=== PATIENT | male | born 1975 | race Caucasian/White ===

== ENCOUNTER 2024-01-23 06:46 | Observation (INO) | payer BC, OTHER ==
[2024-01-23 06:54] LABS: Glucose,Whole Blood 133 mg/dL (70-110)
--- NOTE | 2024-01-23 07:10 | ED ---
Neuro HPI - General Stated Complaint: Stroke-Like Symptoms Time Seen by Provider: 01/23/24 06:50 Source: patient, EMS Mode of arrival: EMS Limitations: no limitations - History of Present Illness Is the patient presenting with stroke symptoms?: Yes Last Known Well Date: 01/23/24 Last Known Well Time: 06:00 Onset/Timin -: minutes(s) Location: left face, left arm, left leg History of same: No Place: outdoors Severity: moderate Quality: weak, numb Improves With: time Worsens With: none On Anticoagulants: No Context: sudden onset Associated Symptoms: denies other symptoms Treatments Prior to Arrival: oxygen, other (Xanax) - Related Data Home Medications: Previous Rx's Medication Instructions Recorded Aspirin 325 mg PO DAILY 30 Days #30 tab 01/25/24 Atorvastatin [Lipitor] 40 mg PO DAILY #30 tab 01/25/24 Clopidogrel [Plavix] 75 mg PO DAILY 21 Days #21 tab 01/25/24 Famotidine [Pepcid] 20 mg PO BID 15 Days #30 tab 01/25/24 Folic Acid 1 mg PO DAILY #30 tab 01/25/24 Metoprolol Tartrate [Lopressor] 25 mg PO BID #60 tab 01/25/24 Multivitamins, Thera [Multivitamin 1 each PO DAILY #30 tab 01/25/24 (formulary)] Nicotine 21Mg/24Hr Patch [Habitrol] 1 patch TRANSDERM DAILY #5 patch 01/25/24 Thiamine [Vitamin B-1] 100 mg PO DAILY #30 tab 01/25/24 hydrOXYzine HCL [Atarax] 25 mg PO TID PRN 10 Days #30 tab 01/25/24 lisinopriL [Zestril] 10 mg PO DAILY #30 tab 01/25/24 Allergies/Adverse Reactions: Allergies Allergy/AdvReac Type Severity Reaction Status Date / Time No Known Allergies Allergy Verified 01/23/24 08:27 Review of Systems ROS Statement: Those systems with pertinent positive or pertinent negative responses have been documented in the HPI. ROS Other: All systems not noted in ROS Statement are negative. Constitutional: Denies: fever, chills Eyes: Denies: eye pain, vision change Respiratory: Denies: cough, dyspnea Cardiovascular: Denies: chest pain, palpitations, edema Gastrointestinal: Denies: abdominal pain, nausea, vomiting Genitourinary: Denies: dysuria, hematuria Musculoskeletal: Denies: back pain Skin: Denies: rash Neurological: Denies: headache, weakness, numbness General Exam Limitations: no limitations General appearance: alert, in no apparent distress Head exam: Present: atraumatic, normocephalic Eye exam: Present: normal appearance. Absent: scleral icterus, conjunctival injection ENT exam: Present: normal oropharynx Neck exam: Present: normal inspection Respiratory exam: Present: normal lung sounds bilaterally. Absent: respiratory distress, wheezes, rales, rhonchi, stridor, accessory muscle use Cardiovascular Exam: Present: regular rate, normal rhythm, normal heart sounds. Absent: systolic murmur, diastolic murmur, rubs, gallop GI/Abdominal exam: Present: soft. Absent: distended, tenderness, guarding, rebound, rigid, mass Extremities exam: Present: normal inspection, normal capillary refill. Absent: pedal edema, calf tenderness Back exam: Present: normal inspection. Absent: CVA tenderness (R), CVA tenderness (L) Neurological exam: Present: alert, oriented X3, CN II-XII intact. Absent: motor sensory deficit Psychiatric exam: Present: anxious Skin exam: Present: warm, dry, intact, normal color. Absent: rash Stroke MDM - Lab Data Result diagrams: 01/23/24 06:53 01/23/24 06:53 Lab Results 01/23/24 01/23/24 01/23/24 Range/Units 06:50 06:53 06:53 WBC 7.6 (3.8-10.6) k/uL RBC 5.10 (4.30-5.90) m/uL Hgb 17.1 (13.0-17.5) gm/dL Hct 48.8 (39.0-53.0) % MCV 95.7 (80.0-100.0) fL MCH 33.5 (25.0-35.0) pg MCHC 35.0 (31.0-37.0) g/dL RDW 13.3 (11.5-15.5) % Plt Count 187 (150-450) k/uL MPV 10.0 Neutrophils % 61 % Lymphocytes % 20 % Monocytes % 7 % Eosinophils % 7 % Basophils % 1 % Neutrophils # 4.7 (1.3-7.7) k/uL Lymphocytes # 1.6 (1.0-4.8) k/uL Monocytes # 0.5 (0-1.0) k/uL Eosinophils # 0.6 (0-0.7) k/uL Basophils # 0.1 (0-0.2) k/uL PT 11.4 (10.0-12.5) sec INR 1.1 (<1.2) APTT 25.1 (22.0-30.0) sec Sodium (137-145) mmol/L Potassium (3.5-5.1) mmol/L Chloride (98-107) mmol/L Carbon Dioxide (22-30) mmol/L Anion Gap mmol/L BUN (9-20) mg/dL Creatinine (0.66-1.25) mg/dL Est GFR (CKD-EPI)AfAm (>60 ml/min/1.73 sqM) Est GFR (CKD-EPI)NonAf (>60 ml/min/1.73 sqM) Glucose (74-99) mg/dL POC Glucose (mg/dL) 133 H (70-110) mg/dL POC Glu Channel Marketing Manager ID Naldo, Makayla Calcium (8.4-10.2) mg/dL Total Bilirubin (0.2-1.3) mg/dL AST (17-59) U/L ALT (4-49) U/L Alkaline Phosphatase (38-126) U/L Creatine Kinase (55-170) U/L Troponin I (0.000-0.034) ng/mL Total Protein (6.3-8.2) g/dL Albumin (3.5-5.0) g/dL 01/23/24 01/23/24 Range/Units 06:53 06:53 WBC (3.8-10.6) k/uL RBC (4.30-5.90) m/uL Hgb (13.0-17.5) gm/dL Hct (39.0-53.0) % MCV (80.0-100.0) fL MCH (25.0-35.0) pg MCHC (31.0-37.0) g/dL RDW (11.5-15.5) % Plt Count (150-450) k/uL MPV Neutrophils % % Lymphocytes % % Monocytes % % Eosinophils % % Basophils % % Neutrophils # (1.3-7.7) k/uL Lymphocytes # (1.0-4.8) k/uL Monocytes # (0-1.0) k/uL Eosinophils # (0-0.7) k/uL Basophils # (0-0.2) k/uL PT (10.0-12.5) sec INR (<1.2) APTT (22.0-30.0) sec Sodium 137 (137-145) mmol/L Potassium 4.6 (3.5-5.1) mmol/L Chloride 108 H (98-107) mmol/L Carbon Dioxide 18 L (22-30) mmol/L Anion Gap 11 mmol/L BUN 16 (9-20) mg/dL Creatinine 0.80 (0.66-1.25) mg/dL Est GFR (CKD-EPI)AfAm >90 (>60 ml/min/1.73 sqM) Est GFR (CKD-EPI)NonAf >90 (>60 ml/min/1.73 sqM) Glucose 136 H (74-99) mg/dL POC Glucose (mg/dL) (70-110) mg/dL POC Glu Channel Marketing Manager ID Calcium 8.9 (8.4-10.2) mg/dL Total Bilirubin 0.4 (0.2-1.3) mg/dL AST 33 (17-59) U/L ALT 57 H (4-49) U/L Alkaline Phosphatase 75 (38-126) U/L Creatine Kinase 121 (55-170) U/L Troponin I <0.012 (0.000-0.034) ng/mL Total Protein 7.2 (6.3-8.2) g/dL Albumin 4.2 (3.5-5.0) g/dL - Medical Decision Making This patient is a 48-year-old man who had acute onset of right sided neurologic symptoms. The patient managed as a code thrombolytic patient. I saw the patient and he went directly to CT scan. Case was discussed with the neurointerventional list. The patient did have complete resolution of symptoms. He did however have recurrence of some symptoms and had repeat CT ordered. The symptoms did promptly resolve again. Case discussed with neurointerventional list and patient not candidate for lytics given that the symptoms had resolved. Patient will be admitted to have further neurology consultation and MRI. The patient had CT of the brain and CT angiogram of the brain that I interpreted as negative for acute hemorrhagic stroke, and no arterial occlusion respectively. The patient had chest x-ray that I interpreted as negative for acute infiltrate, pneumothorax, congestive heart failure Was pt. sent in by a medical professional or institution ([facility] [place], LEAD INFRASTRUCTURE ARCHITECT, urgent care, hospital, or fdc...) When possible be specific @ -[No] Did you speak to anyone other than the patient for history (EMS, parent, family, police, friend...)? What history was obtained from this source @ -[Patient's partner contributed history Did you review nursing and triage notes (agree or disagree)? Why? @ -[I reviewed and agree with nursing and triage notes] Were old charts reviewed (outside hosp., previous admission, EMS record, old EKG, old radiological studies, urgent care reports/EKG's, fdc records)? Report findings @ -[No old charts were reviewed] Differential Diagnosis (chest pain, altered mental status, abdominal pain women, abdominal pain men, vaginal bleeding, weakness, fever, dyspnea, syncope, headache, dizziness, GI bleed, back pain, seizure, CVA, palpatations, mental health, musculoskeletal)? @ -[Differential CVA Ischemic stroke, hemorrhagic stroke, brain tumor, atypical migraine, Wernicke's encephalopathy, seizure, multiple sclerosis, meningitis, encephalitis, hypoglycemia, Guillain-Fitzpatrick, electrolytes disturbance, myasthenia gravis.... This is not meant to be an all-inclusive list EKG interpreted by me (3pts min.). @ -[I interpreted as above] X-rays interpreted by me (1pt min.). @ -[I interpreted as above CT interpreted by me (1pt min.). @ -[I interpreted as above U/S interpreted by me (1pt. min.). @ -[None done] What testing was considered but not performed or refused? (CT, X-rays, U/S, labs)? Why? @ -[None] What meds were considered but not given or refused? Why? @ -[None] Did you discuss the management of the patient with other professionals (tim ramirez i.e. , [facility], LEAD INFRASTRUCTURE ARCHITECT, lab, RT, psych nurse, dialysis social worker, tile helper, teacher, community relations officer, case coordinator)? Give summary @ -[Case was discussed with the admitting physician, as well as with the neuro interventionalists team, see the details above Was smoking cessation discussed for >3mins.? @ -[Yes Was critical care preformed (if so, how long)? @ -[Yes Were there social determinants of health that impacted care today? How? (Homelessness, low income, unemployed, alcoholism, drug addiction, tr ansportation, low edu. Level, literacy, decrease access to med. care, intermediate, rehab)? @ -[No] Was there de-escalation of care discussed even if they declined (Discuss DNR or withdrawal of care, Hospice)? DNR status @ -[No] What co-morbidities impacted this encounter? (DM, HTN, Smoking, COPD, CAD, Ca ncer, CVA, ARF, Chemo, Hep., AIDS, mental health diagnosis, sleep apnea, morbid obesity)? @ -[Hypertension, smoking Was patient admitted / discharged? Hospital course, mention meds given and route, prescriptions, significant lab abnormalities, going to OR and other pertinent info. @ -[Admitted, see above Undiagnosed new problem with uncertain prognosis? @ -[No] Drug Therapy requiring intensive monitoring for toxicity (Heparin, Nitro, Insulin, Cardizem)? @ -[No] Were any procedures done? @ -[No] Diagnosis/symptom? @ -[Hypertension Acute TIA Acute, or Chronic, or Acute on Chronic? @ -[Acute Uncomplicated (without systemic symptoms) or Complicated (systemic symptoms)? @ -[Uncomplicated Side effects of treatment? @ -[No] Exacerbation, Progression, or Severe Exacerbation? @ -[No] Poses a threat to life or bodily function? How? (Chest pain, [place], [place], pneumonia, PE, COPD, DKA, ARF, appy, cholecystitis, CVA, Diverticulitis, Homicidal, Suicidal, threat to staff... and all critical care pts) @ -Yes Past Medical History Past Medical History: Hypertension History of Any Multi-Drug Resistant Organisms: None Reported Past Surgical History: No Surgical Hx Reported Past Psychological History: Anxiety Smoking Status: Never smoker Past Alcohol Use History: Daily Past Drug Use History: None Reported - Past Family History Father Family Medical History: Coronary Artery Disease (CAD) Course Vital Signs 01/23/24 01/23/2401/22/24 06:47 07:16 07:36 Temperature 98.7 F Pulse Rate 122 H 109 H 104 H Pulse Rate [ Precision Assembly Inspector ] Respiratory 18 18 18 Rate Blood Pressure 219/139 201/116 169/110 Blood Pressure [Left Arm] O2 Sat by Pulse 99 98 98 Oximetry 01/23/24 01/23/24 01/23/24 07:40 07:51 07:58 Temperature Pulse Rate 104 H 109 H 108 H Pulse Rate [ Precision Assembly Inspector ] Respiratory 18 18 20 Rate Blood Pressure 169/110 186/119 166/110 Blood Pressure [Left Arm] O2 Sat by Pulse 98 98 98 Oximetry 01/23/24 01/23/24 01/23/24 08:21 08:36 08:49 Temperature Pulse Rate 108 H 110 H 93 Pulse Rate [ Precision Assembly Inspector ] Respiratory 20 20 20 Rate Blood Pressure 172/114 190/128 Blood Pressure [Left Arm] O2 Sat by Pulse 98 99 99 Oximetry 01/23/24 01/23/24 01/23/24 09:00 10:20 10:36 Temperature Pulse Rate 104 H 84 89 Pulse Rate [ Precision Assembly Inspector ] Respiratory 20 18 20 Rate Blood Pressure 179/114 139/102 137/102 Blood Pressure [Left Arm] O2 Sat by Pulse 98 99 97 Oximetry 01/23/24 01/23/24 01/23/24 11:06 11:12 11:36 Temperature Pulse Rate 88 75 79 Pulse Rate [ Precision Assembly Inspector ] Respiratory 20 20 18 Rate Blood Pressure 155/100 154/100 150/95 Blood Pressure [Left Arm] O2 Sat by Pulse 99 98 99 Oximetry 01/23/24 01/23/24 01/23/24 12:06 12:44 13:43 Temperature Pulse Rate 89 80 Pulse Rate [ 86 Precision Assembly Inspector ] Respiratory 18 17 16 Rate Blood Pressure 162/95 173/107 Blood Pressure 157/97 [Left Arm] O2 Sat by Pulse 99 99 95 Oximetry 01/23/24 01/23/24 01/23/24 16:05 20:45 23:34 Temperature Pulse Rate 92 81 Pulse Rate [ 81 Precision Assembly Inspector ] Respiratory 16 18 18 Rate Blood Pressure 164/107 115/75 Blood Pressure 170/104 [Left Arm] O2 Sat by Pulse 96 98 95 Oximetry - Reevaluation(s) Reevaluation #1: 01/23/24 07:59 Case discussed with the interventional stroke team and they state that patient will be medical management at this point given that all symptoms have resolved. Disposition Clinical Impression: TIA (transient ischemic attack), Hypertension Disposition: ADMITTED IP TO THIS HOSP Condition: Good
--- NOTE | 2024-01-23 07:14 | CT ---
EXAM: CT Head Without Intravenous Contrast CLINICAL HISTORY: ITS.REASON CT Reason: Neuro deficit, acute, stroke suspected TECHNIQUE: Axial computed tomography images of the head/brain without intravenous contrast. CTDI is 49.2 mGy and DLP is 1187.6 mGy-cm. This CT exam was performed using one or more of the following dose reduction techniques: automated exposure control, adjustment of the mA and/or kV according to patient size, and/or use of iterative reconstruction technique. COMPARISON: No relevant prior studies available. FINDINGS: Brain: Mild cerebral volume loss. Omar-cisterna magna. No hemorrhage. No significant white matter disease. Ventricles: No acute findings. No ventriculomegaly. Bones/joints: Unremarkable. No acute fracture. Soft tissues: Unremarkable. Sinuses: Unremarkable as visualized. No acute sinusitis. Mastoid air cells: Unremarkable as visualized. No mastoid effusion. IMPRESSION: No acute findings in the head/brain.
--- NOTE | 2024-01-23 07:29 | CT ---
EXAM: CT Angiography Head With Intravenous Contrast CLINICAL HISTORY: ITS.REASON CT Reason: Neuro deficit, acute, stroke suspected TECHNIQUE: Axial computed tomographic angiography images of the head with intravenous contrast. CTDI is 18.2 mGy and DLP is 860.8 mGy-cm. This CT exam was performed using one or more of the following dose reduction techniques: automated exposure control, adjustment of the mA and/or kV according to patient size, and/or use of iterative reconstruction technique. 3D and MIP reconstructed images were created and reviewed. COMPARISON: No relevant prior studies available. FINDINGS: Limitations: Significantly limited study secondary contrast bolus timing. Right internal carotid artery: No acute findings. Intracranial segment is patent with no significant stenosis. No aneurysm. Right anterior cerebral artery: No occlusion or significant stenosis. No aneurysm. Right middle cerebral artery: No occlusion or significant stenosis. No aneurysm. Right posterior cerebral artery: No occlusion or significant stenosis. No aneurysm. Right vertebral artery: Unremarkable as visualized. Left internal carotid artery: No acute findings. Intracranial segment is patent with no significant stenosis. No aneurysm. Left anterior cerebral artery: No occlusion or significant stenosis. No aneurysm. Left middle cerebral artery: No occlusion or significant stenosis. No aneurysm. Left posterior cerebral artery: No occlusion or significant stenosis. No aneurysm. Left vertebral artery: Unremarkable as visualized. Basilar artery: No occlusion or significant stenosis. No aneurysm. IMPRESSION: Limited study. No large vessel occlusion demonstrated. EXAM: CT Angiography Neck With Intravenous Contrast CLINICAL HISTORY: ITS.REASON CT Reason: Neuro deficit, acute, stroke suspected TECHNIQUE: Routine carotid CT angiography protocol was performed with intravenous contrast. NASCET criteria using the distal ICAs for comparison were used for evaluation of stenoses. CTDI is 18.2 mGy and DLP is 860.8 mGy-cm. This CT exam was performed using one or more of the following dose reduction techniques: automated exposure control, adjustment of the mA and/or kV according to patient size, and/or use of iterative reconstruction technique. MIP reconstructed images were created and reviewed. COMPARISON: None. FINDINGS: Limitations: Contrast bolus timing limits this exam. VASCULATURE: Right common carotid artery: No significant stenosis. No dissection or occlusion. Right internal carotid artery: Calcified and noncalcified plaque carotid bifurcations and proximal internal carotid arteries. Right external carotid artery: No occlusion. Right vertebral artery: Dominant right vertebral artery. Left common carotid artery: No significant stenosis. No dissection or occlusion. Left internal carotid artery: See above. Left external carotid artery: No occlusion. Left vertebral artery: No significant stenosis. No dissection or occlusion. NECK: Bones/joints: No acute findings. Soft tissues: Unremarkable. Lung apices: No acute disease. CAROTID STENOSIS REFERENCE USING NASCET CRITERIA: % ICA stenosis = (1 - narrowest ICA diameter/diameter of distal cervical ICA) x 100. Mild - <50% stenosis. Moderate - 50-69% stenosis. Severe - 70-94% stenosis. Near occlusion - 95-99% stenosis. Occluded - 100% stenosis. IMPRESSION: Limited exam. No high-grade stenosis.
[2024-01-23 07:31] LABS: ALT 57 U/L (4-49); AST 33 U/L (17-59); African American GFR (CKD) >90 (>60 ml/min/1.73 sqM); Albumin 4.2 g/dL (3.5-5.0); Alkaline Phosphatase 75 U/L (38-126); Anion Gap 11 mmol/L; Blood Urea Nitrogen 16 mg/dL (9-20); Calcium 8.9 mg/dL (8.4-10.2); Carbon Dioxide 18 mmol/L (22-30); Chloride 108 mmol/L (98-107); Creatine Kinase 121 U/L (55-170); Glucose 136 mg/dL (74-99); Non-African American GFR(CKD) >90 (>60 ml/min/1.73 sqM); Potassium 4.6 mmol/L (3.5-5.1); Sodium 137 mmol/L (137-145); Total Bilirubin 0.4 mg/dL (0.2-1.3); Total Protein 7.2 g/dL (6.3-8.2)
--- NOTE | 2024-01-23 07:37 | XR ---
EXAMINATION TYPE: XR chest 1V portable DATE OF EXAM: 01/23/2024 COMPARISON: 02/06/2016 HISTORY: Chest pain TECHNIQUE: Single frontal view of the chest is obtained. FINDINGS: There is no focal air space opacity, pleural effusion, or pneumothorax seen. The cardiac silhouette size is within normal limits. The osseous structures are intact. IMPRESSION: 1. No acute process.
[2024-01-23] MEDS ORDERED: ACETAMINOPHEN TAB 325 MG TAB PO PRN (07:56)
[2024-01-23 07:57] LABS: Basophils # (A) 0.1 k/uL (0-0.2); Basophils % (A) 1 %; Eosinophils # (A) 0.6 k/uL (0-0.7); Eosinophils % (A) 7 %; HCT 48.8 % (39.0-53.0); HGB 17.1 gm/dL (13.0-17.5); Lymphocytes # (A) 1.6 k/uL (1.0-4.8); Lymphocytes % (A) 20 %; MCH 33.5 pg (25.0-35.0); MCV 95.7 fL (80.0-100.0); Monocytes # (A) 0.5 k/uL (0-1.0); Monocytes % (A) 7 %; Neutrophils # (A) 4.7 k/uL (1.3-7.7); Neutrophils % (A) 61 %; Platelet Count 187 k/uL (150-450); RDW 13.3 % (11.5-15.5); WBC 7.6 k/uL (3.8-10.6)
[2024-01-23 08:00] LABS: INR 1.1 (<1.2); Partial Thromboplastin Time 25.1 sec (22.0-30.0); Prothrombin Time 11.4 sec (10.0-12.5)
[2024-01-23] MEDS: ASPIRIN 325 MG TAB PO STA (08:23)
[2024-01-23] MEDS: LABETALOL 5 MG/ML VIAL MDV IVP STA ×3 (08:28→09:04)
[2024-01-23] MEDS: ATORVASTATIN 40 MG TAB PO SCH (08:30)
[2024-01-23] MEDS: FAMOTIDINE 20 MG TAB PO SCH (08:30)
--- NOTE | 2024-01-23 09:18 | CT ---
EXAMINATION TYPE: CT brain wo con for TPA DATE OF EXAM: 01/23/2024 COMPARISON: 01/23/2024 from 7:01 AM HISTORY: Lt sided numbness, hypertension CT DLP: 1160.[address] of the brain was performed. The ventricles, basal cisterns and sulci overlying the cerebral convexities demonstrate a normal appe arance. There is no evidence for intracranial hemorrhage or sulcal effacement. No mass effects are seen. Osseous calvarium is intact. If symptoms persist consider MRI as clinically warranted. IMPRESSION: 1. No acute intracranial process is seen at this time.
[2024-01-23] MEDS: SODIUM CHLORIDE 0.9% 1,000 ML IV SCH (11:19)
[2024-01-23] MEDS ORDERED: chlordiazePOXIDE 25 MG CAP PO PRN ×3 (11:19)
[2024-01-23] MEDS: METOPROLOL TARTRATE 25 MG TAB PO SCH (11:19)
--- NOTE | 2024-01-23 11:21 | P.HPIM ---
History of Present Illness This is a pleasant 48 years old male with no significant past medical history. Patient presents because of left arm and left face numbness started this morning when he was driving. Patient states that his numbness lasted about 4 to 5 minutes. He called a ambulance and on the way he was noted to have weakness on slurred speech, his weakness is on the left side as well which lasted also for a few minutes. While he was in the emergency room also he had 3-4 episodes of numbness and thus why he had a repeat CAT scan of the brain this morning. Currently denies any numbness or weakness. Speech is normal. No blurred distance vision. No headache dizziness. He denies chest pain dyspnea or coughing. No change in urine or bowel habits. No fever or chills. He smokes about 2 to 3 packs/day and he drinks about 6 packs of beer and 1 pint of liquor, he was counseled to quit the substances and he is agreeable. No illicit drugs. On presentation his blood pressure was elevated. Patient declines taking blood pressure medication at home On presentation his blood pressure was elevated 219/139, history received IV labetalol several injections and his blood pressure currently improved to 179/114 His heart rate was 122 and then 104 He is afebrile and he is saturating well on room air He has unremarkable CBC, INR, BMP, liver enzymes. Troponin is negative less than 0.012. Creatinine kinase is [address] of the brain is negative for acute process x 2 Chest x-ray is negative for acute process CTA of the head and neck showing no aneurysm or dissection or significant stenosis EKG showing sinus tachycardia at [address]-T changes and QTc 392 Review of Systems Review of systems CONSTITUTIONAL: No fever, no malaise, no fatigue. HEENT: No recent visual problems or hearing problems. Denied any sore throat. CARDIOVASCULAR: No orthopnea, PND, no palpitations, no syncope. PULMONARY: No shortness of breath, no cough, no hemoptysis. GASTROINTESTINAL: No diarrhea, no nausea, no vomiting, no abdominal pain. Normoactive bowel sounds. -NEUROLOGICAL: No headaches, no weakness, no numbness currently. See above HEMATOLOGICAL: Denies any bleeding or petechiae. GENITOURINARY: Denies any burning micturition, frequency, or urgency. MUSCULOSKELETAL/RHEUMATOLOGICAL: Denies any joint pain, swelling, or any muscle pain. ENDOCRINE: Denies any polyuria or polydipsia. Past Medical History Past Medical History: Hypertension History of Any Multi-Drug Resistant Organisms: None Reported Past Surgical History: No Surgical Hx Reported Past Psychological History: Anxiety Smoking Status: Never smoker Past Alcohol Use History: Daily Past Drug Use History: None Reported - Past Family History Father Family Medical History: Coronary Artery Disease (CAD) Medications and Allergies Home Medications Medication Instructions Recorded Confirmed Type No Known Home Medications 02/06/16 01/23/24 History Allergies Allergy/AdvReac Type Severity Reaction Status Date / Time No Known Allergies Allergy Verified 01/23/24 08:27 Physical Exam Vitals: Vital Signs Temp Pulse Resp BP Pulse Ox 01/23/24 10:20 84 18 139/102 99 01/23/24 09:00 104 H 20 179/114 98 01/23/24 08:49 93 20 190/128 99 01/23/24 08:36 110 H 20 99 01/23/24 08:21 108 H 20 172/114 98 01/23/24 07:58 108 H 20 166/110 98 01/23/24 07:51 109 H 18 186/119 98 01/23/24 07:40 104 H 18 169/110 98 01/23/24 07:36 104 H 18 169/110 98 01/23/24 07:16 109 H 18 201/116 98 01/23/24 06:47 98.7 F 122 H 18 219/139 99 Intake and Output 01/22/24 01/23/24 01/23/24 22:59 06:59 14:59 Other: Weight 106.594 kg -GENERAL: The patient is alert and oriented x3, not in any acute distress. obese HEENT: Pupils are round and equally reacting to light. EOMI. No scleral icterus. No conjunctival pallor. Normocephalic, atraumatic. No pharyngeal erythema. No thyromegaly. CARDIOVASCULAR: S1 and S2 present. No murmurs, rubs, or gallops. PULMONARY: Chest is clear to auscultation, no wheezing , no crackles. ABDOMEN: Soft, nontender, nondistended, normoactive bowel sounds. No palpable organomegaly. MUSCULOSKELETAL: No joint swelling or deformity. EXTREMITIES: No cyanosis, clubbing, or pedal edema. NEUROLOGICAL: Gross neurological examination did not reveal any focal deficits. SKIN: No rashes. no petechiae. Results CBC & Chem 7: 01/23/24 06:53 01/23/24 06:53 Labs: Abnormal Lab Results - Last 24 Hours (Table) 01/23/24 01/23/24 Range/Units 06:50 06:53 Chloride 108 H (98-107) mmol/L Carbon Dioxide 18 L (22-30) mmol/L Glucose 136 H (74-99) mg/dL POC Glucose (mg/dL) 133 H (70-110) mg/dL ALT 57 H (4-49) U/L Assessment and Plan Assessment: Possible TIA with transient weakness and numbness on the left face, arm and leg with transient slurred speech Hypertension urgency Nicotine dependence Alcohol use disorder at risk of alcohol withdrawal Obesity with BMI of 31.9 Plan: Patient was started on aspirin 325 mg in the emergency room we will continue Check echocardiogram Neurology consult Start metoprolol 25 mg twice daily Check TSH and hemoglobin A1c and B12 and folate Patient was counseled to quit substances, nicotine and alcohol and he verbalized understanding and acceptance DVT prophylaxis: Subcutaneous heparin GI prophylaxis: Pepcid Prognosis is guarded
--- NOTE | 2024-01-23 15:21 | P.CNNES ---
History of Present Illness Consult date: 01/23/24 Requesting physician: Zana Bailey Reason for Consult: tia History of Present Illness: this is a 48-year-old gentleman who presented to [facility] department because of left facial numbness as well as left upper and lower extremity numbness. He is accompanied with his mother was at bedside. Patient states that today between 5:30 to 6:00 in the morning he noticed that his left side of the face was numb as well as left upper and lower extremity was numb. He stated that episode lasted less than hour and possibly lasted up to 10 minutes may be slightly longer but pressure less than an hour. He denies any weakness, denies any difficulty getting his words out or swallowing or visual disturbance. He denies any history of stroke. Denies history of TIAs. He states he has history of hypertension but does not take medication for at least one year and his mother stated that it's because he does not like to take medication. He smokes 2 packs a day. He drinks about 6 cans of beer and a half a pint. Denies any illicit drug use. Denies being on any medication. He does have severe anxiety. He feels those symptoms were due to anxiety but he denies any stressors that are new. He states that he is driving about 2 hours to work every day but again he denies any new stressors or anything aggravating him. Some of the workup during this hospital visit consisted of: sodium is 137, glucose is 136, TSH is 0.[address] of the head is reported as no acute intracranial process seen at this time.I personally reviewed the CT and agree with report. CT angiography of the head and neck was reported as Limited but no high-grade stenosis or large vessel occlusion. a stroke code was activated and is seems the ED discuss it with the stroke/intervention team telephone engineer and they stated the patient says symptoms has resolved. They recommended medical management. The risk of IV thrombolytic outweigh the benefit Review of Systems Review of system: The 12 point system was reviewed and apparent positive and negative per HPI. Past Medical History Past Medical History: Hypertension History of Any Multi-Drug Resistant Organisms: None Reported Past Surgical History: No Surgical Hx Reported Additional Past Surgical History / Comment(s): ortho surgery- arm fracture Past Anesthesia/Blood Transfusion Reactions: No Reported Reaction Past Psychological History: Anxiety Smoking Status: Never smoker Past Alcohol Use History: Daily Past Drug Use History: None Reported - Past Family History Father Family Medical History: Coronary Artery Disease (CAD) Medications and Allergies Home Medications Medication Instructions Recorded Confirmed Type No Known Home Medications 02/06/16 01/23/24 History Allergies Allergy/AdvReac Type Severity Reaction Status Date / Time No Known Allergies Allergy Verified 01/23/24 08:27 Physical Examination - Vital Signs Vital Signs: Vital Signs Temp Pulse Pulse Resp BP BP Pulse Ox 01/23/24 13:43 86 16 157/97 95 01/23/24 12:44 80 17 173/107 99 01/23/24 12:06 89 18 162/95 99 01/23/24 11:36 79 18 150/95 99 01/23/24 11:12 75 20 154/100 98 01/23/24 11:06 88 20 155/100 99 01/23/24 10:36 89 20 137/102 97 01/23/24 10:20 84 18 139/102 99 01/23/24 09:00 104 H 20 179/114 98 01/23/24 08:49 93 20 190/128 99 01/23/24 08:36 110 H 20 99 01/23/24 08:21 108 H 20 172/114 98 01/23/24 07:58 108 H 20 166/110 98 01/23/24 07:51 109 H 18 186/119 98 01/23/24 07:40 104 H 18 169/110 98 01/23/24 07:36 104 H 18 169/110 98 01/23/24 07:16 109 H 18 201/116 98 01/23/24 06:47 98.7 F 122 H 18 219/139 99 Intake and Output 01/23/24 01/23/24 01/23/24 06:59 14:59 22:59 Other: # Voids 1 Weight 106.594 kg 106.594 kg GENERAL: The patient is lying in bed and is not in acute distress. NEUROLOGICAL: Higher mental function: The patient is awake, alert, oriented to self, place and time. Patient is following commands. No aphasia and no neglect. Cranial nerves: The pupils are round, equal and reactive to light and accommodation. Visual caraballo are full to confrontation throughout. Extraocular movement is intact no nystagmus is noted. Facial sensation is normal to touch throughout. The facial strength is normal throughout. Hearing is normal george aterally to hand rub. Tongue is midline and moved [id number] without any difficulty. No dysarthria is noted. Shoulder shrug is normal bilaterally. Motor: The strength is 5 over 5 throughout. Normal tone and bulk. Cerebellum: Normal finger to nose heel to vernon bilaterally. Sensation: Sensation is normal to touch throughout. Reflexes (right/left): 2+ throughout. Plantars are downgoing bilaterally. Results - Laboratory Findings CBC and BMP: 01/23/24 06:53 01/23/24 06:53 Abnormal Lab Findings: Abnormal Labs 01/23/24 01/23/24 06:50 06:53 Chloride 108 H Carbon Dioxide 18 L Glucose 136 H POC Glucose (mg/dL) 133 H ALT 57 H Assessment and Plan Assessment: this is a 48-year-old gentleman who presented emergency department because of numbness over the left face as well as the left upper and lower extremity that started between 5:30 to 6:00 in the morning and the episode lasted less than 1 hour and he feels lasted probably 10 minutes. Patient has underlying history of hypertension and he is not compliant taking medication for at least one year or more. He smokes 2 packs a day and drinks heavily daily. Transient ischemic attack due to his risk factors (HTN, obesity, tobacco and heavy alcohol consumption) hypertension and noncompliant taking medication for at least one year or more Tobacco use 2 packs a day Alcohol use Severe Anxiety Obese Plan: I ordered MRI the brain. Patient was started on aspirin 325 mg daily by the ED team. I also started the Plavix 75 mg daily. Patient was not any antiplatelets prior to this. Patient's are on the Lipitor 40 mg daily. I ordered MRI the brain appeared 2-D echo was ordered and is pending as well as lipid panel. TSH, vitamin B12, folate and hemoglobin A1c is ordered and is pending Continue neuro checks Continue cardiac monitoring PT, OT and JUDICIAL CLERK are consulted patient was counseled on tobacco cessation Patient was also counseled on compliance taken blood pressure medication and checking his blood pressure at home For his alcohol consumption that is heavy patient was counseled on the lowering the consumption. Patient started on thiamine 100 mg daily by the primary team. We'll defer the CIWA protocol to the primary team we'll defer the rest of the medical measure the primary team For DVT prophylaxis the patient is on subcu heparin Upon discharge the patient needs to follow-up with a neurologist as an outpatient within 2 weeks The plan was discussed with the patient and the his mother who was at bedside Thank you consultation Time with Patient: Greater than 30
[2024-01-23] MEDS: CLOPIDOGREL 75 MG TAB PO SCH (16:04)
[2024-01-23] MEDS: NICOTINE 21MG/24HR PATCH TRANSDERM SCH (18:37)
[2024-01-23] MEDS ORDERED: LORazepam 2 MG/ML INJ IV PRN ×2 (18:57)
[2024-01-23] MEDS: HEPARIN SODIUM,PORCINE 5,000 UNIT/ML 1 ML VIAL SQ SCH (21:00)
[2024-01-24] MEDS: LABETALOL 5 MG/ML VIAL MDV IVP PRN (00:16)
[2024-01-24] MEDS: THIAMINE 100 MG TAB PO SCH (08:55)
[2024-01-24] MEDS: MULTIVITAMINS, THERA 1 EACH TAB PO SCH (08:55)
[2024-01-24] MEDS: ASPIRIN 325 MG TAB PO SCH (08:55)
[2024-01-24] MEDS: FOLIC ACID 1 MG TAB PO SCH (08:55)
--- NOTE | 2024-01-24 10:19 | CA ---
Transthoracic Echo Report Name: William Mosquera Age: 48 Gender: M : 1975 Exam Date: 01/23/2024 11:43 Exam Location: [facility] Ht (in): 72 Wt (lb): 235 Ordering Physician: Nhan Peralta MD Attending/Referring Phys: [id number], [employer] Farhana Flowers, MATTHEW Procedure CPT: Indications: Rule out heart disease Cardiac Hx: HTN Technical Quality: Good Contrast 1: Total Dose (mL): Contrast 2: Total Dose (mL): MEASUREMENTS (Male / Female) Normal Values 2D ECHO LV Diastolic Diameter PLAX 4.6 cm 4.2 - 5.9 / 3.9 - 5.3 cm LV Systolic Diameter PLAX 3.0 cm IVS Diastolic Thickness 1.5 cm 0.6 - 1.0 / 0.6 - 0.9 cm LVPW Diastolic Thickness 1.3 cm 0.6 - 1.0 / 0.6 - 0.9 cm LV Relative Wall Thickness 0.6 RV Internal Dim ED PLAX 3.4 cm LA Systolic Diameter LX 3.8 cm 3.0 - 4.0 / 2.7 - 3.8 cm LV Diastolic Volume MOD 4C 146.6 cm??? LV Systolic Volume MOD 4C 79.9 cm??? LV Ejection Fraction MOD 4C 45.5 % LV Cardiac Index MOD 4C 2494.6 cm???/min???m??? LV Diastolic Length 4C 9.3 cm LV Systolic Length 4C 7.8 cm LV Diastolic Volume MOD 2C 121.2 cm??? LV Systolic Volume MOD 2C 49.6 cm??? LV Ejection Fraction MOD 2C 59.0 % LV Cardiac Index MOD 2C 2673.8 cm???/min???m??? LV Diastolic Length 2C 8.8 cm LV Systolic Length 2C 7.2 cm LA Volume 54.6 cm??? 18 - 58 / 22 - 52 cm??? LA Volume Index 23.2 cm???/m??? 16 - 28 cm???/m??? M-MODE Aortic Root Diameter MM 3.5 cm MV E Point Septal Separation 0.3 cm AV Cusp Separation MM 2.7 cm DOPPLER AV Peak Velocity 107.7 cm/s AV Peak Gradient 4.6 mmHg MV Area PHT 3.8 cm??? Mitral E Point Velocity 87.7 cm/s Mitral A Point Velocity 68.3 cm/s Mitral E to A Ratio 1.3 MV Deceleration Time 202.0 ms FINDINGS Left Ventricle Left ventricular ejection fraction is estimated at 55-60 %. Left ventricular cavity size normal. Moderate concentric left ventricular hypertrophy. No obvious regional wall motion abnormalities. Right Ventricle Mild right ventricular dilatation. Unable to estimate the right ventricular systolic pressure. Right Atrium Normal right atrial size. No right atrial thrombus or mass seen. Left Atrium Normal left atrial size. Mitral Valve Structurally normal mitral valve. No mitral stenosis, regurgitation or prolapse. Aortic Valve Trileaflet aortic valve. No aortic valve stenosis or regurgitation. Tricuspid Valve Structurally normal tricuspid valve. No tricuspid stenosis, regurgitation or prolapse. Pulmonic Valve Structurally normal pulmonic valve. No pulmonic regurgitation. Pericardium No pericardial effusion. Aorta Normal size aortic root and proximal ascending aorta. CONCLUSIONS Normal LV size and systolic function. Borderline right ventricle enlargement. No significant abnormality on the Doppler exam. No pericardial effusion Previewed by: Dr. Nova Garcia MD (Electronically Signed) Final Date: 24 January 2024 10:18
[2024-01-24] MEDS: chlordiazePOXIDE 25 MG CAP PO PRN (12:18)
--- NOTE | 2024-01-24 13:40 | P.PN ---
Subjective This is a pleasant 48 years old male with no significant past medical history. Patient presents because of left arm and left face numbness started this morning when he was driving. Patient states that his numbness lasted about 4 to 5 minutes. He called a ambulance and on the way he was noted to have weakness on slurred speech, his weakness is on the left side as well which lasted also for a few minutes. While he was in the emergency room also he had 3-4 episodes of numbness and thus why he had a repeat CAT scan of the brain this morning. Currently denies any numbness or weakness. Speech is normal. No blurred distance vision. No headache dizziness. He denies chest pain dyspnea or coughing. No change in urine or bowel habits. No fever or chills. He smokes about 2 to 3 packs/day and he drinks about 6 packs of beer and 1 pint of liquor, he was counseled to quit the substances and he is agreeable. No illicit drugs. On presentation his blood pressure was elevated. Patient declines taking blood pressure medication at home On presentation his blood pressure was elevated 219/139, history received IV labetalol several injections and his blood pressure currently improved to 179/114 His heart rate was 122 and then 104 He is afebrile and he is saturating well on room air He has unremarkable CBC, INR, BMP, liver enzymes. Troponin is negative less than 0.012. Creatinine kinase is [address] of the brain is negative for acute process x 2 Chest x-ray is negative for acute process CTA of the head and neck showing no aneurysm or dissection or significant stenosis EKG showing sinus tachycardia at [address]-T changes and QTc 392 01/24/2024 No more weakness or numbness. No other neurological symptoms No chest pain no headache patient pt blood pressure is improved but still elevated 17*/92, he is on metoprolol 25 mg and we will add lisinopril , pt is counseled to check his blood test in one week and he agrees so we started him on lisinopril work of TSH, Hb A1c and folate were unremarkable mri of the brain is pending pt is on aspirin and plavix and lipitor Objective - Vital Signs Vital signs: Vital Signs Temp 97.6 F 01/24/24 11:12 Pulse 71 01/24/24 11:12 Resp 16 01/24/24 11:12 BP 179/92 01/24/24 11:12 Pulse Ox 98 01/24/24 11:12 FiO2 Intake & Output 01/23/24 01/24/24 01/24/24 18:59 06:59 18:59 Intake Total 640 240 Balance 640 240 Weight 106.594 kg Intake: Intake, IV Titration 100 Amount Sodium Chloride 0.9% 1, 100 000 ml @ 20 mls/hr IV . Q24H [facility] Rx#:[id number] Oral 540 240 Other: Voiding Method Toilet Toilet # Voids 1 - Exam GENERAL: The patient is alert and oriented x3, not in any acute distress. Well developed, well nourished. HEENT: Pupils are round and equally reacting to light. EOMI. No scleral icterus. No conjunctival pallor. Normocephalic, atraumatic. No pharyngeal erythema. No thyromegaly. CARDIOVASCULAR: S1 and S2 present. No murmurs, rubs, or gallops. PULMONARY: Chest is clear to auscultation, no wheezing , no crackles. ABDOMEN: Soft, nontender, nondistended, normoactive bowel sounds. No palpable organomegaly. MUSCULOSKELETAL: No joint swelling or deformity. EXTREMITIES: No cyanosis, clubbing, or pedal edema. NEUROLOGICAL: Gross neurological examination did not reveal any focal deficits. SKIN: No rashes. no petechiae. - Labs CBC & Chem 7: 01/23/24 06:53 01/23/24 06:53 Assessment and Plan Assessment: TIA with transient weakness and numbness on the left face, arm and leg with transient slurred speech Hypertension urgency, improved Nicotine dependence Alcohol use disorder at risk of alcohol withdrawal Obesity with BMI of 31.9 Plan: Continue with aspirin and Plavix per neurologist Continue with metoprolol and add lisinopril. Patient counseled to check his blood test in 1 week after discharge with his PCP and he is agreeable Neurology consult Follow-up MRI of the brain and B12 level Patient was counseled to quit substances, nicotine and alcohol and he verbalized understanding and acceptance DVT prophylaxis: Subcutaneous heparin GI prophylaxis: Pepcid Prognosis is guarded
[2024-01-24] MEDS: LORazepam 2 MG/ML INJ ONE (14:24)
[2024-01-24] MEDS: LORazepam 2 MG/ML INJ IV STA (14:24)
[2024-01-24] MEDS: lisinopriL 10 MG TAB PO SCH (15:02)
--- NOTE | 2024-01-24 15:05 | MR ---
EXAMINATION TYPE: MR brain wo con DATE OF EXAM: 01/24/2024 2:54 PM COMPARISON: NONE HISTORY: Stroke. Left arm numbness. Multiplanar and multispin-echo imaging of the brain was performed . The ventricles, basal cisterns and sulci overlying the cerebral convexities are within normal limits. There is no evidence for midline shift or mass effect. Acute intracranial hemorrhage or extra-axial collection is not evident. The brain parenchyma reveals no abnormal increased signal. No acute edema is identified. The paranasal sinuses and mastoid air cells are well-aerated. IMPRESSION: Unremarkable MRI of the brain.
--- NOTE | 2024-01-24 16:12 | P.PN ---
Subjective Progress Note Date: 01/24/24 I am following-up with patient and states is doing well and no new neurological issues. His blood pressure continues to run high per nurse. Objective - Vital Signs Vital signs: Vital Signs Temp 97.6 F 01/24/24 11:12 Pulse 71 01/24/24 11:12 Resp 16 01/24/24 14:00 BP 179/92 01/24/24 11:12 Pulse Ox 98 01/24/24 11:12 FiO2 Intake & Output 01/23/24 01/24/24 01/24/24 18:59 06:59 18:59 Intake Total 640 240 Balance 640 240 Weight 106.594 kg Intake: Intake, IV Titration 100 Amount Sodium Chloride 0.9% 1, 100 000 ml @ 20 mls/hr IV . Q24H [facility] Rx#:[id number] Oral 540 240 Other: Voiding Method Toilet Toilet # Voids 1 - Exam Some of the workup during this hospital visit consisted of: sodium is 137, glucose is 136, TSH is 0.[address] of the head is reported as no acute intracranial process seen at this time.I personally reviewed the CT and agree with report. CT angiography of the head and neck was reported as Limited but no high-grade stenosis or large vessel occlusion. MRI Brain is unremarkable. 2D echo: Is reported as normal left ventricular size and systolic function. Borderline right ventricular enlargement. No significant abnormality on the Doppler exam. - Labs CBC & Chem 7: 01/23/24 06:53 01/23/24 06:53 Assessment and Plan Assessment: this is a 48-year-old gentleman who presented emergency department because of numbness over the left face as well as the left upper and lower extremity that started between 5:30 to 6:00 in the morning and the episode lasted less than 1 hour and he feels lasted probably 10 minutes. Patient has underlying history of hypertension and he is not compliant taking medication for at least one year or more. He smokes 2 packs a day and drinks heavily daily. Transient ischemic attack due to his risk factors (HTN, obesity, tobacco and heavy alcohol consumption) hypertension and noncompliant taking medication for at least one year or more Tobacco use 2 packs a day Alcohol use Severe Anxiety Obese Plan: Patient was started on aspirin 325 mg daily and Plavix 75 mg daily during this admission. The patient to be on dual antiplateletes for 21 days and after 21 days stop Plavix but continue ASA indefinitely Patient was not any antiplatelets prior to this. Patient's are on the Lipitor 40 mg daily. Pending lipid panel. Continue neuro checks Continue cardiac monitoring PT, OT and ROLLER CHECKER are consulted patient was counseled on tobacco cessation Patient was also counseled on compliance taken blood pressure medication and checking his blood pressure at home For his alcohol consumption that is heavy patient was counseled on the lowering the consumption. Patient started on thiamine 100 mg daily by the primary team. We'll defer the CIWA protocol to the primary team we'll defer the rest of the medical measure the primary team For DVT prophylaxis the patient is on subcu heparin Upon discharge the patient needs to follow-up with a neurologist as an outpatient within 2 weeks The plan was discussed with the patient and the his mother who was at bedside. Time with Patient: Less than 30
[2024-01-24 16:30] LABS: Chol/HDL Ratio 6.12 Ratio; LDL Cholesterol,Calculated 119.9 mg/dL (0.0-131.0)
[2024-01-25 10:10] VITALS: BP 133/85; PULSE 74; RESP 18; TEMP 97.9
--- NOTE | 2024-01-26 05:52 | P.DS ---
Providers Date of admission: 01/23/24 07:59 Attending physician: Gaston Pedro Consults: 01/23/24 07:57 Consult Physician Urgent Consulting Provider: Yunier Saldaña Consult Reason/Comments: Left Sided weakness. TIA Do you want consulting provider notified?: Yes Primary care physician: Stated None Hospital Course: Diagnoses: TIA with transient weakness and numbness on the left face, arm and leg with transient slurred speech Hypertension urgency, improved Nicotine dependence Alcohol use disorder at risk of alcohol withdrawal Obesity with BMI of 31.9 Hospital course: This is a pleasant 48 years old male with no significant past medical history. Patient presents because of left arm and left face numbness started this morning when he was driving. Patient states that his numbness lasted about 4 to 5 minutes. He called a ambulance and on the way he was noted to have weakness on slurred speech, his weakness is on the left side as well which lasted also for a few minutes. Patient evaluated by neurologist and he had extensive workup including MRI of the brain which was negative for acute/subacute infarction or other significant abnormality. Patient was not on antiplatelet therapy at home. Then he was started on aspirin 325 mg together with Plavix 75 mg x 21 days, and then stop Plavix and continue with aspirin thereafter. Patient verbalized understanding these instructions upon discharge. Risk of bleeding explained extensively for the patient and he wishes to continue the treatment. On admission he had hypertensive urgency with a blood pressure reading 219/139, he was started on metoprolol and lisinopril and his blood pressure improved down to 133/85 upon discharge and he has been asymptomatic. All his symptoms resolved. He had no weakness numbness. No chest pain or dyspnea. No other new complaint and patient eager to go home today Patient was cleared for discharge by neurology service. Problems and management plan were discussed with the patient and he verbalized understanding and acceptance Patient was found stable and can be discharged home in guarded prognosis however he needs follow-up as an outpatient. Patient was instructed to follow up with PCP within one week and patient agrees patient was instructed to call his health insurance provider to find a nearby PCP, he told me he is going to follow-up with a PCP of his girlfriend Patient was instructed to follow-up with a neurologist Dr. Dr. Garrett in 2 weeks after discharge and he is agreeable Physical exam Gen: patient is a AAOx3, no distress CVS: S1-S2, RRR, no murmur Lungs: B/L CTA, no wheezing Abdomen: soft, no distention, no tenderness, positive bowel sounds Extremity: no leg edema or induration Gait: Normal Neuro: Cranial nerves are grossly intact. No weakness and strength is 5/5. No decrease sensation. Time spent more than 35 minutes Patient Condition at Discharge: Good Plan - Discharge Summary Discharge Rx Participant: Yes New Discharge Prescriptions: New Aspirin 325 mg PO DAILY 30 Days #30 tab Nicotine 21Mg/24Hr Patch [Habitrol] 1 patch TRANSDERM DAILY #5 patch Thiamine [Vitamin B-1] 100 mg PO DAILY #30 tab lisinopriL [Zestril] 10 mg PO DAILY #30 tab hydrOXYzine HCL [Atarax] 25 mg PO TID PRN 10 Days #30 tab PRN Reason: Anxiety Folic Acid 1 mg PO DAILY #30 tab Atorvastatin [Lipitor] 40 mg PO DAILY #30 tab Metoprolol Tartrate [Lopressor] 25 mg PO BID #60 tab Multivitamins, Thera [Multivitamin (formulary)] 1 each PO DAILY #30 tab Famotidine [Pepcid] 20 mg PO BID 15 Days #30 tab Clopidogrel [Plavix] 75 mg PO DAILY 21 Days #21 tab Discharge Medication List Aspirin 325 mg PO DAILY 30 Days #30 tab 01/25/24 [Rx] Atorvastatin [Lipitor] 40 mg PO DAILY #30 tab 01/25/24 [Rx] Clopidogrel [Plavix] 75 mg PO DAILY 21 Days #21 tab 01/25/24 [Rx] Famotidine [Pepcid] 20 mg PO BID 15 Days #30 tab 01/25/24 [Rx] Folic Acid 1 mg PO DAILY #30 tab 01/25/24 [Rx] Metoprolol Tartrate [Lopressor] 25 mg PO BID #60 tab 01/25/24 [Rx] Multivitamins, Thera [Multivitamin (formulary)] 1 each PO DAILY #30 tab 01/25/24 [Rx] Nicotine 21Mg/24Hr Patch [Habitrol] 1 patch TRANSDERM DAILY #5 patch 01/25/24 [Rx] Thiamine [Vitamin B-1] 100 mg PO DAILY #30 tab 01/25/24 [Rx] hydrOXYzine HCL [Atarax] 25 mg PO TID PRN 10 Days #30 tab 01/25/24 [Rx] lisinopriL [Zestril] 10 mg PO DAILY #30 tab 01/25/24 [Rx] Follow up Appointment(s)/Referral(s): Ishaan Garrett MD [Medical Doctor] - 2 Weeks (neurologist ) None,Stated [Primary Care Provider] - 1-2 days (We recommend to check your blood test including but not limited to kidney function test and electrolytes as you are started on new antihypertensive medication ) Patient Instructions/Handouts: Transient Ischemic Attack (DC), Chronic Hypertension (DC) Activity/Diet/Wound Care/Special Instructions: heart healthy diet activity is restricted till you see your doctor we recommend for you to be on dual antiplateletes (aspirin and plavix) for 21 days and after 21 days stop Plavix but continue ASA indefinitely We recommend to call your health insurance provider to find a nearby primary care doctor, then call to make an appointment within 1 week We recommend to check your blood test including but not limited to kidney function test and electrolytes as you are started on new antihypertensive medication Neurologists: Dr Schaffer: [address], [place] [address] ~2.[address] Esteban: [id number] , [place] [address] ~3.2 mi Discharge Disposition: HOME SELF-CARE
== END 2024-01-25 12:06 | disposition home or self-care (01) ==
LOC: EC 06:46 → INTOOBSV 07:59 → 3SCARD 07:59 → UNDODISIN 01-25 12:06
PROVIDERS: ADMIT Hospitalist; ATTEND Hospitalist
DX: G45.9 Transient cerebral ischemic attack, unspecified (principal); I16.0 Hypertensive urgency; T46.5X6A Underdosing of other antihypertensive drugs, initial encounter; Z91.128 Patient's intentional underdosing of medication regimen for other reason; I10 Essential (primary) hypertension; F17.210 Nicotine dependence, cigarettes, uncomplicated; F10.90 Alcohol use, unspecified, uncomplicated; E66.9 Obesity, unspecified; Z68.31 Body mass index [BMI] 31.0-31.9, adult; F41.9 Anxiety disorder, unspecified; Z79.02 Long term (current) use of antithrombotics/antiplatelets; Z79.82 Long term (current) use of aspirin; Z79.899 Other long term (current) drug therapy; Z71.41 Alcohol abuse counseling and surveillance of alcoholic; Z71.6 Tobacco abuse counseling; Z71.89 Other specified counseling
CPT/HCPCS: 96376; 96372 ×3; 96375; 96374; 99285; 36415; 93005; 93306; 97161; 97165; 80061; 80053; 84443; 82607; 82550; 82746; 84484; 85025; 85610; 85730; 83036; 71045; 70496; 70450 ×2; 70498; 70551; G0378 ×3; S4990 ×3; J2060; J1644 ×3; Q9967; J1920 ×2; 96361

== ENCOUNTER 2024-10-04 10:31 | Day surgery (SDC) | payer BC ==
[2024-10-04 10:51] VITALS: TEMP 98.7
[2024-10-04] MEDS: LACTATED RINGERS 1,000 ML IV SCH (11:07)
[2024-10-04] MEDS: IV FLUID CONTINUATION 1,000 ML IV ONE (11:08)
[2024-10-04] MEDS ORDERED: PROPOFOL 10 MG/ML 20 ML VIAL IV ONE (11:15)
--- NOTE | 2024-10-04 11:30 | P.PCN ---
Date of Procedure: 10/04/24 Procedure(s) Performed: BRIEF HISTORY: Patient is a 49-year-old pleasant white male scheduled for an elective colonoscopy as a part of screening for colon cancer. PROCEDURE PERFORMED: Colonoscopy. PREOPERATIVE DIAGNOSIS: Screening for colon cancer. IV sedation per Anesthesia. PROCEDURE: After informed consent was obtained, the patient, was brought into the endoscopy unit. IV sedation was administered by Anesthesia under continuous monitoring. Digital rectal examination was normal. Initially the Olympus CF-160 flexible video colonoscope was then inserted in the rectum, gradually advanced into the cecum without any difficulty. Careful examination was performed as the scope was gradually being withdrawn. Ileocecal valve and the appendiceal orifice were visualized and appeared normal. Prep was poor in the right colon. Irrigation was performed.. Mucosa of the cecum, ascending colon, transverse colon, descending colon, sigmoid colon, and rectum appeared normal. Retroflexion was performed in the rectum and no lesions were seen. The patient tolerated the procedure well. IMPRESSION: Normal-appearing colon from rectum to cecum no evidence of colorectal neoplasia. RECOMMENDATIONS: Findings of this examination were discussed with the patient as well as his family.. He was advised to have repeat screening colonoscopy in 10 years.
[2024-10-04 11:48] VITALS: BP 122/78; PULSE 78; RESP 18
== END 2024-10-04 12:02 | disposition home or self-care (01) ==
LOC: ORWHC2ENDO 10:31
PROVIDERS: ATTEND Internal Medicine Gastroenterology
DX: Z12.11 Encounter for screening for malignant neoplasm of colon (principal); I10 Essential (primary) hypertension; E78.5 Hyperlipidemia, unspecified; F41.9 Anxiety disorder, unspecified; F12.90 Cannabis use, unspecified, uncomplicated; F17.210 Nicotine dependence, cigarettes, uncomplicated; Z86.73 Personal history of transient ischemic attack (TIA), and cerebral infarction without residual deficits; Z79.82 Long term (current) use of aspirin; Z79.899 Other long term (current) drug therapy
CPT/HCPCS: 45378; J2704

== ENCOUNTER → 2024-12-12 | Outpatient (CLI) | payer BC ==
[2024-12-12 13:48] VITALS: BP 167/109; PULSE 82; RESP 18; TEMP 97.6
--- NOTE | 2024-12-12 14:40 | P.SLEEP ---
History of Present Illness DATE: 12/12/2024 CONSULTATION/NEW PATIENT EVALUATION HISTORY OF PRESENT ILLNESS/SLEEP-WAKE EVALUATION: 49-year-old gentleman had been evaluated in the sleep center for possible obstructive sleep apnea hypopnea syndrome. SLEEP SCHEDULE: Usually sleep schedule from 8:30 PM to 4 AM on weekdays and from 9 PM to 4 AM on weekend. FALLING ASLEEP: No problems with falling asleep. DURING SLEEP: Patient has loud snoring, sleeps on the side position with witnessed episodes of stop breathing during the sleep. Patient has positive h istory of dry mouth, panic attack, restless legs no history of hypnogogical hallucinations, sleep paralysis, or cataplexy. DURING THE DAY/WAKE STATE: Patient may have sleepiness during the day. [place] sleepiness scale is increased to 11. Usually patient does not take naps. PAST MEDICAL HISTORY: Anxiety, hypertension, hyperlipidemia, TIA in January 2024. PAST SURGICAL HISTORY: None. MEDICATIONS: Please see below. SOCIAL HISTORY: Please see below. FAMILY HISTORY: Please see below. REVIEW OF SYSTEMS: Loud snoring, sleepiness. No fevers. No double vision. No recent chest pain. No shortness of breath. No abdominal pain. No bleeding episodes. No blood in urine. No seizure episodes. PHYSICAL EXAMINATION: GENERAL: A pleasant patient without any distress. VITAL SIGNS: Have been reviewed, please see below, weight 286.0 pounds, BMI 32.8. HEENT: PERRLA, EOMI. Evaluation of oropharynx showed tongue protrudes midline, low position of soft palate Mallampati 4. NECK: Supple. No JVD. Thyroid is not palpable. 18.5 inches in circumference. LUNGS: Clear to percussion and to auscultation. Good air exchange. No wheezing or rhonchi. HEART: S1, S2 regular. No murmurs, gallops or rubs. ABDOMEN: Soft and nontender. Bowel sounds are present. No organomegaly appreciated. EXTREMITIES: No clubbing or cyanosis. DIP FILLER: Awake, alert, and oriented x3. Cranial nerves 2 to 7 intact. There is no fasciculation or atrophy noted. No focal deficits observed. ASSESSMENT: 1. Loud snoring, witnessed episodes of stop breathing during the sleep, extremely low position of soft palate Mallampati 4, wide neck 18.5 inches in circumference, sleepiness with [place] Sleepiness Scale 11. Obstructive sleep apnea hypopnea syndrome. 2. Mild obesity BMI 32.8. 3. Hypertension. 4. History of anxiety. 5 hyperlipidemia. 6 . Status post TIA in January 2024. PLAN: 1. Polysomnography for evaluation of patient's breathing during sleep. 2. Following plan after reading sleep study. 3. Preferable position during sleep on the side. 4. No driving if patient feels any sleepiness. Patient is aware of civil and criminal liability for unsafe driving. 5. Sleep hygiene with regular sleep time for at least 7.5-8 hours. 6. Watching weight. Thank you very much for referring this patient for consultation. Sincerely, Nader Bryan MD, PhD, FAASM. Diplomat of [place] [employer], Sleep Medicine Board by [place] [employer] [place] [employer] Perinatal Coordinator of [facility] [place] cc: William Gray DO Past Medical History Past Medical History: CVA/TIA, Hyperlipidemia, Hypertension Additional Past Medical History / Comment(s): Snoring History of Any Multi-Drug Resistant Organisms: None Reported Past Surgical History: No Surgical Hx Reported Additional Past Surgical History / Comment(s): ortho surgery- r arm fracture, wisdom teeth Past Anesthesia/Blood Transfusion Reactions: No Reported Reaction Past Psychological History: Anxiety Smoking Status: Current every day smoker Past Alcohol Use History: Daily Additional Past Alcohol Use History / Comment(s): smokes 1 ppd since 16yrs. beer and liquor Past Drug Use History: Marijuana Additional Drug Use History / Comment(s): rare marijauna pt aware not to use today - Past Family History Father Family Medical History: Cancer, Coronary Artery Disease (CAD), CVA/TIA, Hypertension, Myocardial Infarction ([place]) Additional Family Medical History / Comment(s): Mental Illness (BiPolar) (Unsure of cancer type - thinks prostate or colon) Medications and Allergies Home Medications Medication Instructions Recorded Confirmed Type Folic Acid 1 mg PO DAILY #30 tab 01/25/24 10/03/24 Rx Metoprolol Tartrate [Lopressor] 25 mg PO BID #60 tab 01/25/24 12/12/24 Rx lisinopriL [Zestril] 10 mg PO DAILY #30 tab 01/25/24 12/12/24 Rx Aspirin 81 mg PO HS 10/03/24 12/12/24 History Atorvastatin [Lipitor] 40 mg PO DAILY 10/03/24 12/12/24 History Escitalopram [Lexapro] 5 mg PO HS 10/03/24 12/12/24 History Allergies Allergy/AdvReac Type Severity Reaction Status Date / Time shellfish derived Allergy uvula Verified 10/03/24 11:36 swelling Physical Exam Vitals: Vital Signs Temp Pulse Resp BP Pulse Ox 12/12/24 13:38 97.6 F 82 18 167/109 98 Intake and Output 12/11/24 12/12/24 12/12/24 22:59 06:59 14:59 Other: Weight 116.12 kg Sleep Note - Sleep Data ESS Total: 11 - Sleep Note Sleep Note: Temperature: 97.6 F Pulse Rate: 82 Respiratory Rate: 18 Blood Pressure: 167/109 SpO2: 98 Height: 6 ft 2 in Weight: 116.12 kg BMI: Neck Circumference: 18.5
== END ==
LOC: 3 N SLEEP 13:14
PROVIDERS: ATTEND Internal Medicine
DX: G47.33 Obstructive sleep apnea (adult) (pediatric) (principal); E66.9 Obesity, unspecified; I10 Essential (primary) hypertension; E78.5 Hyperlipidemia, unspecified; F17.210 Nicotine dependence, cigarettes, uncomplicated; F12.90 Cannabis use, unspecified, uncomplicated; Z68.32 Body mass index [BMI] 32.0-32.9, adult; Z86.59 Personal history of other mental and behavioral disorders; Z86.73 Personal history of transient ischemic attack (TIA), and cerebral infarction without residual deficits; Z91.013 Allergy to seafood
CPT/HCPCS: 99211

== ENCOUNTER 2025-01-13 19:21 | Outpatient (CLI) | payer BC ==
--- NOTE | 2025-01-15 11:17 | P.PCN ---
Description of Procedure: POLYSOMNOGRAPHY REPORT PROCEDURE(S)/DATE(S): Polysomnography 01/13/2025 CLINICAL: Patient has been seen in the sleep center for evaluation of obstructive sleep apnea-hypopnea syndrome. Please see my consultation. Sleep study has been done for evaluation of patient breathing during the sleep. PROCEDURE: The standard montage for clinical polysomnography included the electroencephalogram, the electrooculogram, the mentalis surface electromyography and Lead II cardiography. The respiratory battery consisted of measurements of nasal/buccal air flow, pressure transducer measurements from nose, thoracic and/or abdominal effort and intercostal surface electromyography. Video monitoring has been done to check for any parasomnia events. Nocturnal oxyhemoglobin saturations were obtained by finger oximetry. Step-matthews titration with positive airway pressure was utilized to control the respiratory events, if necessary. RESULTS: During the diagnostic sleep study sleep efficiency was normal 90.2%. Latency to sleep onset was normal 17.0 min. Sleep architecture showed stage NI was increased to 10.8%, Delta sleep was twelve 2.4 %, REM sleep was slightly decreased to 15.4%. Respiratory channel showed 200 obstructive apneas, 0 mixed apneas, 0 central apneas, 364 hypopneas with lowest oxygen level 85%. Total apnea hypopnea index was 84.3. Heart rate was in the range between 41 and 155, average 75. EMG showed no significant periodic limb movements. IMPRESSIONS: 1. Extremely severe obstructive sleep apnea hypopnea syndrome. 2. No significant periodic limb movements have been documented. Please see other impressions from consultation PLAN: 1. The patient will have PAP titration for correction of respiratory abnormalities during the sleep. 2. Losing weight program. 3. Sleep hygiene with regular time in bed for at least 7-1/2 hours. 4. No driving if feeling sleepiness. Thank you very much for allowing me to participate in the management of your patient. Sincerely, Nader Bryan MD, PhD, FAASM. Diplomat of [place] [employer], Sleep Medicine Board by [place] [employer] Scheduling Administrator of [facility] [place] cc: William Gray DO
== END 2025-01-14 05:12 | disposition home or self-care (01) ==
LOC: 3 N SLEEP 19:21
PROVIDERS: ATTEND Internal Medicine
DX: G47.33 Obstructive sleep apnea (adult) (pediatric) (principal); F17.210 Nicotine dependence, cigarettes, uncomplicated; F12.90 Cannabis use, unspecified, uncomplicated; Z91.013 Allergy to seafood
CPT/HCPCS: 95810

== ENCOUNTER 2025-02-05 19:33 | Outpatient (CLI) | payer BC ==
--- NOTE | 2025-02-06 12:05 | P.PCN ---
Description of Procedure: CLINICAL: Titration with positive air pressure has been done for correction of respiratory abnormalities during sleep. DESCRIPTION OF PROCEDURE: The standard montage for clinical polysomnography included the electroencephalogram, the electrocardiogram, the mentalis surface electromyography and Lead II cardiography. The respiratory battery consisted of measurements of nasal /buccal air flow, pressure transducer measurements from the nose, thoracic and /or abdominal effort and intercostal surface electromyography. Video monitoring has been done to check for any parasomnia events. Nocturnal oxyhemoglobin saturations were obtained by finger oximetry. Step-matthews titration with positive airway pressure was utilized to control respiratory events. Raw data of sleep recording has been reviewed and is adequate. RESULTS: Sleep efficiency was normal 89.2%. Latency to sleep onset was normal 24.5 minutes.]. Sleep architecture showed stage N1 was normal 8.1%, Delta sleep was absent 0%, REM sleep was above normal at 34.1%. Heart rate was minimum 66 BPM, maximum 77 BPM, average 71 BPM. EMG showed 25.7 periodic limb movements per hour with 0.3 micriarousals per hour. PAP titration have been done with CPAP up to the pressure 8 cm H2O. The best results were at the pressure 8 cm H2O. Apnea hypopnea index reduced to 0.4. IMPRESSION: 1. Obstructive sleep apnea hypopnea syndrome on controle with PAP treatment. 2. Significant periodic limb movements have been documented. Please see other impressions from consultation. PLAN: 1. The patient will have treatment with positive air pressure equipment with the level of pressure AutoPap 5-10 cm H2O and should use it every night for the whole night. 2. Watching and losing weight. 3. Sleep hygiene with regular time in bed for at least 8 hours. 4. No driving if feeling any sleepiness. 5. I will see the patient for follow up visit to explain the results of the test, recommendations, check compliance with treatment and make any necessary adjustment related to mask fitting, pressure and humidification. 6. Please check iron profile including ferritin level. Low level of iron may increase risk for periodic limb movements Thank you very much for allowing me to participate in the management of your patient. Sincerely, Nader Bryan MD, PhD, FAASM Diplomat of [place] [employer] Sleep Medicine Board of [place] [employer] Fur Machine Operator of [facility] [place] William Rosales DO
== END 2025-02-06 05:40 | disposition home or self-care (01) ==
LOC: 3 N SLEEP 19:33
PROVIDERS: ATTEND Internal Medicine
DX: G47.33 Obstructive sleep apnea (adult) (pediatric) (principal); G47.61 Periodic limb movement disorder; F12.90 Cannabis use, unspecified, uncomplicated; F17.200 Nicotine dependence, unspecified, uncomplicated; Z91.013 Allergy to seafood; Z99.89 Dependence on other enabling machines and devices
CPT/HCPCS: 95811

== ENCOUNTER → 2025-04-25 | Outpatient (CLI) | payer BC | END | disposition home or self-care (01) | LOC: RADNMMAIN 10:40 | PROVIDERS: ATTEND Internal Medicine | DX: Z53.9 Procedure and treatment not carried out, unspecified reason (principal) ==

== ENCOUNTER → 2025-05-07 | Outpatient (CLI) | payer BC ==
[2025-05-07 16:41] VITALS: BP 132/86; PULSE 80; RESP 16; TEMP 97.8
--- NOTE | 2025-05-07 16:57 | P.PROGSL ---
Subjective DATE: 05/07/2025 FOLLOW UP VISIT. Patient with obstructive sleep apnea hypopnea syndrome return to sleep center for follow-up visit. Recently patient had sleep study which documented obstructive sleep apnea hypopnea syndrome. Patient was initiated on PAP therapy and today is first visit after treatment was started. Patient was able to use PAP equipment every night for the whole night. The patient does not have significant problems with the mask, PAP pressure and humidification. [place] sleepiness scale is 6, which is normal. I checked information from PAP unit. PAP unit pressure 5-10, average 9.5 cm H2O. Usage is 95% and 70% for more then 4 hours, average 4.75 hours per night. Leak is increased to 35.1 l/m. Apnea Hypopnea Index is 2.1, which is normal. MEDICATIONS: Please see below During physical exam: GENERAL: A pleasant patient without any distress. VITAL SIGNS: Weight 252 pounds. HEENT: PERRLA, EOMI.low position of soft palate, Mallapati 4 . NECK: Supple. No JVD. LUNGS: Clear to percussion and to auscultation. Good air exchange. No wheezing or rhonchi. HEART: S1, S2 regular. ABDOMEN: Soft and nontender.[] EXTREMITIES: No clubbing or cyanosis. TELETYPESETTER MONITOR: Awake, alert, and oriented x3. No focal deficit. Impressions: 1. Extremely severe obstructive sleep apnea-hypopnea syndrome, apnea hypopnea index during polysomnogram 84.3. Patient demonstrated good compliance with treatment, benefiting from treatment. 2. Hypertension. 3. History of anxiety. 4. Hyperlipidemia. 5. Status post TIA in January 2024. Plan: 1. Continue using PAP equipment every night for the whole night. 2. To change air filter at least 1-2 times per month. 3. PAP unit should stay lower then position of the head. 4. Advised patient to remove all remaining water from humidifier canister daily and make it dry after each usage. Refill canister with fresh distilled water before each usage. 5. Sleep hygiene with regular time in bed for at least 8 hours. 6. Precautions related to driving. No driving if feel any sleepiness. 7. I will maintain prescription for PAP supplies including mask, tube, filters. 8. Follow up visit in 8 months or earlier if patient has any problems. 9. Watching weight. Thank you very much for allowing me to participate in the management of your patient. Nader Bryan MD, PhD, FAASM. Diplomat of [place] [employer], Sleep Medicine Board by [place] [employer] Compliance Counsel of [facility] [place] Objective - Vital Signs Vital Signs: Vital Signs Temp 97.8 F 05/07/25 16:40 Pulse 80 05/07/25 16:40 Resp 16 05/07/25 16:40 BP 132/86 05/07/25 16:40 Pulse Ox 97 05/07/25 16:40 FiO2 Home Medications: Home Medications Medication Instructions Recorded Confirmed Type Folic Acid 1 mg PO DAILY #30 tab 01/25/24 10/03/24 Rx Metoprolol Tartrate [Lopressor] 25 mg PO BID #60 tab 01/25/24 12/12/24 Rx lisinopriL [Zestril] 10 mg PO DAILY #30 tab 01/25/24 12/12/24 Rx Aspirin 81 mg PO HS 10/03/24 12/12/24 History Atorvastatin [Lipitor] 40 mg PO DAILY 10/03/24 12/12/24 History Escitalopram [Lexapro] 5 mg PO HS 10/03/24 12/12/24 History
== END ==
LOC: 3 N SLEEP 16:27
PROVIDERS: ATTEND Internal Medicine
DX: G47.33 Obstructive sleep apnea (adult) (pediatric) (principal); I10 Essential (primary) hypertension; F41.9 Anxiety disorder, unspecified; E78.5 Hyperlipidemia, unspecified; F12.90 Cannabis use, unspecified, uncomplicated; F17.200 Nicotine dependence, unspecified, uncomplicated; Z86.73 Personal history of transient ischemic attack (TIA), and cerebral infarction without residual deficits; Z91.013 Allergy to seafood
CPT/HCPCS: 99212